=== PATIENT | female | born 1965 | race Caucasian/White ===

== ENCOUNTER 2021-10-07 16:29 | Inpatient (IN) | payer OTHER ==
[2021-10-07 16:41] VITALS: BMI 25.7
[2021-10-07] MEDS ORDERED: LACTATED RINGERS SOLUTION 1000 ML INFUS.BAG IV ONE (16:51)
[2021-10-07 17:38] LABS: VENOUS BASE EXCESS 5.8 mmol/L (-2-2); VENOUS PCO2 50.4 mmHg (38-52); VENOUS PH 7.416 (7.310-7.410)
[2021-10-07 17:45] LABS: BASO % 0.1 % (0-2.0); EOS % 0.3 % (0-4.5); HEMATOCRIT 40.6 % (32.4-45.2); HEMOGLOBIN 13.2 GM/dL (10.7-15.3); LYMPH % 4.2 % (8-40); MCH 28.2 pg (25.7-33.7); MCHC 32.5 g/dl (32.0-36.0); MEAN CELL VOLUME 86.7 fl (80-96); MEAN PLT VOLUME 8.8 fl (7.5-11.1); MONO % 4.1 % (3.8-10.2); NEUT % 91.3 % (42.8-82.8); PLATELET COUNT 329 10^3/uL (134-434); RBC 4.68 M/mm3 (3.60-5.2); RDW 14.1 % (11.6-15.6); WHITE BLOOD COUNT 8.5 K/mm3 (4.0-10.0)
[2021-10-07 17:49] LABS: INR 1.55 (0.83-1.09); PROTHROMBIN TIME (PATIENT) 17.4 SEC (9.7-13.0)
[2021-10-07 17:51] LABS: ACTIVATED PTT 28.5 SECONDS (25.2-36.5); CHLORIDE 99 mmol/L (98-107); SODIUM 139 mmol/L (136-145)
[2021-10-07 17:53] LABS: CALCIUM 8.4 mg/dL (8.5-10.1)
[2021-10-07 17:54] LABS: ANION GAP 8 MMOL/L (8-16); BLOOD UREA NITROGEN 17.7 mg/dL (7-18); CO2 32 mmol/L (21-32); GLUCOSE,RANDOM 368 mg/dL (74-106)
[2021-10-07 17:56] LABS: BILIRUBIN,DIRECT 0.2 mg/dL (0.0-0.2)
[2021-10-07 17:57] LABS: CREATININE 0.9 mg/dL (0.55-1.3); SGOT/AST 29 U/L (15-37); SGPT/ALT 38 U/L (13-61)
[2021-10-07 17:59] LABS: BILIRUBIN,TOTAL 0.5 mg/dL (0.2-1); LACTIC ACID 2.1 mmol/L (0.4-2.0); TOT PROT 8.2 g/dl (6.4-8.2)
[2021-10-07 18:00] LABS: ALK PHOS 86 U/L (45-117); LDH 495 U/L (84-246)
[2021-10-07 18:23] LABS: ANISOCYTOSIS 0; HELMET CELLS 0; HOWELL-JOLLY BODIES 0; MACROCYTOSIS 0; OVALOCYTE 0; PLATELET ESTIMATE NORMAL; ROULEAU 0; SICKELED CELLS 0; TARGET CELLS 0; TEAR DROP CELLS 0; TOXIC GRANULATION 0
[2021-10-07] MEDS ORDERED: DEXAMETHASONE SOD PHOSPHATE 10 MG/1 ML VIAL IVPUSH ONE (19:08)
[2021-10-07] MEDS ORDERED: INSULIN (NOVOLOG) ASPART 100 UNITS/ML 10ML VIAL SQ ONE (19:11)
[2021-10-07] MEDS ORDERED: DEXAMETHASONE SOD PHOSPHATE 10 MG/1 ML VIAL ONE (19:26)
[2021-10-07] MEDS ORDERED: AZITHROMYCIN 250 MG TABLET PO ONE (19:36)
[2021-10-07] MEDS ORDERED: CEFTRIAXONE 1 GM in DEXTROSE 5%-WATER - 100 ML IVPB ONE (19:36)
[2021-10-07] MEDS ORDERED: ENOXAPARIN NA (PORCINE) 40 MG/0.4 ML DISP.SYRIN SQ ONE (20:06)
[2021-10-07] MEDS ORDERED: AZITHROMYCIN 250 MG TABLET ONE (20:06)
[2021-10-07] MEDS ORDERED: CEFTRIAXONE 1 GM/50 ML BAG ONE (20:07)
[2021-10-07] MEDS: ENOXAPARIN NA (PORCINE) 40 MG/0.4 ML DISP.SYRIN SQ SCH (20:26)
[2021-10-08] MEDS ORDERED: amLODIPine BESYLATE 5 MG TABLET (FP) ONE ×2 (00:21→08:30)
[2021-10-08] MEDS: amLODIPine BESYLATE 5 MG TABLET (FP) PO SCH ×2 (00:24→09:05)
[2021-10-08] MEDS: INSULIN SLIDING SCALE (NOVOLOG) 1 VIAL SQ SCH ×4 (00:24→17:00)
[2021-10-08] MEDS: CEFTRIAXONE 2 GM in DEXTROSE 5%-WATER 2 GM/100 ML BAG IVPB SCH (01:30)
[2021-10-08 08:15] LABS: BASO % 0.3 % (0-2.0); EOS % 1.3 % (0-4.5); HEMATOCRIT 38.7 % (32.4-45.2); HEMOGLOBIN 12.6 GM/dL (10.7-15.3); LYMPH % 10.5 % (8-40); MCH 28.2 pg (25.7-33.7); MCHC 32.6 g/dl (32.0-36.0); MEAN CELL VOLUME 86.6 fl (80-96); MEAN PLT VOLUME 8.8 fl (7.5-11.1); MONO % 5.8 % (3.8-10.2); NEUT % 82.1 % (42.8-82.8); PLATELET COUNT 276 10^3/uL (134-434); RBC 4.46 M/mm3 (3.60-5.2); WHITE BLOOD COUNT 6.5 K/mm3 (4.0-10.0)
[2021-10-08] MEDS ORDERED: DEXAMETHASONE SOD PHOSPHATE 10 MG/1 ML VIAL ONE (08:30)
[2021-10-08] MEDS ORDERED: PANTOPRAZOLE SODIUM 40 MG VIAL ONE (08:31)
[2021-10-08] MEDS ORDERED: ENOXAPARIN NA (PORCINE) 40 MG/0.4 ML DISP.SYRIN SQ ONE (08:31)
[2021-10-08 08:35] LABS: MAGNESIUM 2.3 mg/dL (1.8-2.4)
[2021-10-08 08:39] LABS: PHOSPHOROUS 3.1 mg/dL (2.5-4.9)
[2021-10-08] MEDS: PANTOPRAZOLE SODIUM 40 MG VIAL IVPUSH SCH (09:05)
[2021-10-08] MEDS: DEXAMETHASONE SOD PHOSPHATE 10 MG/1 ML VIAL IVPUSH SCH (09:05)
[2021-10-08] MEDS: ENOXAPARIN NA (PORCINE) 40 MG/0.4 ML DISP.SYRIN SQ SCH (09:05)
[2021-10-08] MEDS ORDERED: CEFTRIAXONE 2 GM/100 ML BAG IVPB ONE (13:28)
[2021-10-08] MEDS ORDERED: AZITHROMYCIN IVPB 500 MG/250 ML BAG IVPB ONE (13:28)
[2021-10-08] MEDS: AZITHROMYCIN IVPB 500 MG/250 ML BAG IVPB SCH (14:00)
[2021-10-08] MEDS ORDERED: REMDESIVIR 200 MG in SODIUM CHLORIDE 250 ML IVPB ONE (17:15)
[2021-10-08] MEDS ORDERED: VANCOMYCIN 1 GM in D5W (PRE-DOCKED) 1,000 MG/250 ML IVPB ONE (18:20)
[2021-10-08] MEDS ORDERED: VANCOMYCIN 1 GRAM (PRE-DOCKED) 1,000 MG/250 ML BAG IVPB ONE ×2 (18:56→19:01)
[2021-10-09] MEDS: INSULIN (NOVOLOG) ASPART 100 UNITS/ML 10ML VIAL SQ SCH ×3 (00:24→22:33)
[2021-10-09] MEDS: INSULIN SLIDING SCALE (NOVOLOG) 1 VIAL SQ SCH ×4 (00:54→22:33)
[2021-10-09] MEDS: INSULIN (LEVEMIR) 100 UNITS/ML UNITS SQ SCH ×3 (00:54→22:34)
[2021-10-09] MEDS ORDERED: DEXAMETHASONE SOD PHOSPHATE 4 MG/1 ML VIAL ONE (07:45)
[2021-10-09] MEDS ORDERED: CEFTRIAXONE 2 GM/100 ML BAG IVPB ONE (07:46)
[2021-10-09] MEDS ORDERED: AZITHROMYCIN IVPB 500 MG/250 ML BAG IVPB ONE (07:47)
[2021-10-09] MEDS ORDERED: PANTOPRAZOLE SODIUM 40 MG VIAL ONE (07:47)
[2021-10-09] MEDS ORDERED: ENOXAPARIN NA (PORCINE) 40 MG/0.4 ML DISP.SYRIN SQ ONE (07:47)
[2021-10-09] MEDS: DEXAMETHASONE SOD PHOSPHATE 10 MG/1 ML VIAL IVPUSH SCH (09:16)
[2021-10-09] MEDS: ENOXAPARIN NA (PORCINE) 40 MG/0.4 ML DISP.SYRIN SQ SCH (09:16)
[2021-10-09] MEDS: amLODIPine BESYLATE 5 MG TABLET (FP) PO SCH (09:17)
[2021-10-09] MEDS: PANTOPRAZOLE SODIUM 40 MG VIAL IVPUSH SCH (09:17)
[2021-10-09] MEDS: CEFTRIAXONE 2 GM in DEXTROSE 5%-WATER 2 GM/100 ML BAG IVPB SCH (09:17)
[2021-10-09 10:17] LABS: ARTERIAL BLD GAS O2 SATURATION 76.4 % (95-98); ARTERIAL BLOOD GAS BASE EXCESS 1.7 mmol/L (-2-2); ARTERIAL BLOOD GAS PO2 44.2 mmHg (80-100); ARTERIAL BLOOD GAS pH 7.337 (7.350-7.450)
[2021-10-09] MEDS: AZITHROMYCIN IVPB 500 MG/250 ML BAG IVPB SCH (10:45)
[2021-10-09 12:22] LABS: ALBUMIN 1.7 g/dl (3.4-5.0); BLOOD UREA NITROGEN 19.5 mg/dL (7-18); MAGNESIUM 2.1 mg/dL (1.8-2.4)
[2021-10-09 12:25] LABS: CREATININE 0.7 mg/dL (0.55-1.3); PHOSPHOROUS 3.1 mg/dL (2.5-4.9)
[2021-10-09 12:26] LABS: TOT PROT 6.9 g/dl (6.4-8.2)
[2021-10-09 12:27] LABS: BILIRUBIN,TOTAL 0.2 mg/dL (0.2-1)
[2021-10-09] MEDS: REMDESIVIR 100 MG in SODIUM CHLORIDE 250 ML IVPB SCH (12:28)
[2021-10-09] MEDS ORDERED: VANCOMYCIN 1 GRAM (PRE-DOCKED) 1,000 MG/250 ML BAG IVPB ONE (13:39)
[2021-10-09] MEDS: VANCOMYCIN 1 GRAM (PRE-DOCKED) 1,000 MG/250 ML BAG IVPB SCH (13:44)
[2021-10-09 16:15] LABS: BASO % 0.9 % (0-2.0); EOS % 0.2 % (0-4.5); HEMATOCRIT 36.7 % (32.4-45.2); HEMOGLOBIN 12.1 GM/dL (10.7-15.3); LYMPH % 7.4 % (8-40); MCH 28.2 pg (25.7-33.7); MCHC 32.9 g/dl (32.0-36.0); MEAN CELL VOLUME 85.8 fl (80-96); MEAN PLT VOLUME 8.9 fl (7.5-11.1); MONO % 3.1 % (3.8-10.2); NEUT % 88.4 % (42.8-82.8); PLATELET COUNT 283 10^3/uL (134-434); RBC 4.28 M/mm3 (3.60-5.2); RDW 14.1 % (11.6-15.6); WHITE BLOOD COUNT 8.2 K/mm3 (4.0-10.0)
[2021-10-09 17:13] LABS: ERYTHROCYTE SEDIMENTATION RATE 82 mm/hr (0-30)
[2021-10-09] MEDS ORDERED: ATORVASTATIN CA 40 MG TABLET (FP) ONE (22:23)
[2021-10-10] MEDS: ATORVASTATIN CA 40 MG TABLET (FP) PO SCH ×2 (03:41→21:58)
[2021-10-10] MEDS ORDERED: VANCOMYCIN 1 GRAM (PRE-DOCKED) 1,000 MG/250 ML BAG IVPB SCH (03:45)
[2021-10-10 07:29] LABS: ALBUMIN 1.7 g/dl (3.4-5.0); BLOOD UREA NITROGEN 18.4 mg/dL (7-18)
[2021-10-10 07:30] LABS: CALCIUM 7.9 mg/dL (8.5-10.1)
[2021-10-10 07:31] LABS: CREATININE 0.6 mg/dL (0.55-1.3)
[2021-10-10 07:32] LABS: MAGNESIUM 2.2 mg/dL (1.8-2.4); PHOSPHOROUS 3.5 mg/dL (2.5-4.9)
[2021-10-10 07:33] LABS: BILIRUBIN,TOTAL 0.4 mg/dL (0.2-1); TOT PROT 6.3 g/dl (6.4-8.2)
[2021-10-10] MEDS: INSULIN SLIDING SCALE (NOVOLOG) 1 VIAL SQ SCH ×4 (07:41→21:59)
[2021-10-10] MEDS: INSULIN (LEVEMIR) 100 UNITS/ML UNITS SQ SCH ×2 (07:41→21:58)
[2021-10-10] MEDS: INSULIN (NOVOLOG) ASPART 100 UNITS/ML 10ML VIAL SQ SCH ×3 (07:42→18:10)
[2021-10-10] MEDS ORDERED: PT OWN MED DRAWER 7, Y5N ONE (08:49)
[2021-10-10] MEDS ORDERED: DEXTROSE 5%-WATER 100 ML IVPB ONE (08:50)
[2021-10-10 09:01] LABS: HEMATOCRIT 34.5 % (32.4-45.2); HEMOGLOBIN 11.3 GM/dL (10.7-15.3); MCH 28.1 pg (25.7-33.7); MCHC 32.6 g/dl (32.0-36.0); MEAN CELL VOLUME 86.1 fl (80-96); MEAN PLT VOLUME 9.2 fl (7.5-11.1); PLATELET COUNT 279 10^3/uL (134-434); RBC 4.01 M/mm3 (3.60-5.2); WHITE BLOOD COUNT 7.9 K/mm3 (4.0-10.0)
[2021-10-10] MEDS ORDERED: POTASSIUM CHLORIDE ORAL LIQUID 20 MEQ/15 ML PO ONE (09:45)
[2021-10-10] MEDS: CEFTRIAXONE 2 GM in DEXTROSE 5%-WATER 2 GM/100 ML BAG IVPB SCH (09:58)
[2021-10-10] MEDS: ENOXAPARIN NA (PORCINE) 40 MG/0.4 ML DISP.SYRIN SQ SCH (09:59)
[2021-10-10] MEDS: LISINOPRIL 20 MG TABLET PO SCH (09:59)
[2021-10-10] MEDS: valACYclovir HCL 500 MG TABLET (FP) PO SCH ×2 (10:00→21:58)
[2021-10-10] MEDS: amLODIPine BESYLATE 5 MG TABLET (FP) PO SCH (10:00)
[2021-10-10] MEDS: DEXAMETHASONE SOD PHOSPHATE 10 MG/1 ML VIAL IVPUSH SCH (10:00)
[2021-10-10] MEDS: HYDROCHLOROTHIAZIDE 12.5 MG CAPSULE (FP) PO SCH (10:00)
[2021-10-10] MEDS: PANTOPRAZOLE SODIUM 40 MG VIAL IVPUSH SCH (10:00)
[2021-10-10] MEDS: AZITHROMYCIN IVPB 500 MG/250 ML BAG IVPB SCH (10:01)
[2021-10-10] MEDS: REMDESIVIR 100 MG in SODIUM CHLORIDE 250 ML IVPB SCH (11:55)
[2021-10-11] MEDS: INSULIN SLIDING SCALE (NOVOLOG) 1 VIAL SQ SCH ×5 (06:36→21:28)
[2021-10-11] MEDS: INSULIN (LEVEMIR) 100 UNITS/ML UNITS SQ SCH ×2 (06:36→21:28)
[2021-10-11] MEDS: INSULIN (NOVOLOG) ASPART 100 UNITS/ML 10ML VIAL SQ SCH ×3 (06:36→18:09)
[2021-10-11 07:11] LABS: BASO % 0.2 % (0-2.0); EOS % 1.3 % (0-4.5); HEMATOCRIT 33.4 % (32.4-45.2); HEMOGLOBIN 11.2 GM/dL (10.7-15.3); LYMPH % 12.8 % (8-40); MCH 28.4 pg (25.7-33.7); MCHC 33.6 g/dl (32.0-36.0); MEAN CELL VOLUME 84.6 fl (80-96); MEAN PLT VOLUME 8.5 fl (7.5-11.1); MONO % 7.6 % (3.8-10.2); NEUT % 78.1 % (42.8-82.8); PLATELET COUNT 262 10^3/uL (134-434); RBC 3.95 M/mm3 (3.60-5.2); RDW 13.9 % (11.6-15.6); WHITE BLOOD COUNT 8.7 K/mm3 (4.0-10.0)
[2021-10-11 07:39] LABS: ALBUMIN 1.7 g/dl (3.4-5.0); BLOOD UREA NITROGEN 18.6 mg/dL (7-18); CALCIUM 8.2 mg/dL (8.5-10.1)
[2021-10-11 07:42] LABS: CREATININE 0.8 mg/dL (0.55-1.3); PHOSPHOROUS 2.8 mg/dL (2.5-4.9)
[2021-10-11 07:44] LABS: BILIRUBIN,TOTAL 0.6 mg/dL (0.2-1); TOT PROT 6.4 g/dl (6.4-8.2)
[2021-10-11] MEDS: VANCOMYCIN 1 GRAM (PRE-DOCKED) 1,000 MG/250 ML BAG IVPB SCH (08:03)
[2021-10-11] MEDS ORDERED: DEXTROSE 5%-WATER 100 ML IVPB ONE (10:19)
[2021-10-11] MEDS ORDERED: INSULIN (LEVEMIR) 100 UNITS/ML UNITS SQ ONE (10:45)
[2021-10-11] MEDS: ENOXAPARIN NA (PORCINE) 40 MG/0.4 ML DISP.SYRIN SQ SCH (11:10)
[2021-10-11] MEDS: PANTOPRAZOLE SODIUM 40 MG VIAL IVPUSH SCH (11:10)
[2021-10-11] MEDS: amLODIPine BESYLATE 5 MG TABLET (FP) PO SCH (11:10)
[2021-10-11] MEDS: REMDESIVIR 100 MG in SODIUM CHLORIDE 250 ML IVPB SCH (11:11)
[2021-10-11] MEDS: HYDROCHLOROTHIAZIDE 12.5 MG CAPSULE (FP) PO SCH (11:11)
[2021-10-11] MEDS: DEXAMETHASONE SOD PHOSPHATE 10 MG/1 ML VIAL IVPUSH SCH (11:11)
[2021-10-11] MEDS: LISINOPRIL 20 MG TABLET PO SCH (11:11)
[2021-10-11] MEDS: valACYclovir HCL 500 MG TABLET (FP) PO SCH ×2 (11:11→21:26)
[2021-10-11] MEDS: CEFTRIAXONE 2 GM in DEXTROSE 5%-WATER 2 GM/100 ML BAG IVPB SCH (11:17)
[2021-10-11] MEDS: AZITHROMYCIN IVPB 500 MG/250 ML BAG IVPB SCH (12:00)
[2021-10-11] MEDS: ATORVASTATIN CA 40 MG TABLET (FP) PO SCH (21:26)
[2021-10-12] MEDS: INSULIN SLIDING SCALE (NOVOLOG) 1 VIAL SQ SCH ×3 (06:34→21:58)
[2021-10-12] MEDS: INSULIN (NOVOLOG) ASPART 100 UNITS/ML 10ML VIAL SQ SCH ×2 (06:34→19:39)
[2021-10-12] MEDS: INSULIN (LEVEMIR) 100 UNITS/ML UNITS SQ SCH ×2 (06:34→21:58)
[2021-10-12 08:39] LABS: HEMATOCRIT 35.4 % (32.4-45.2); HEMOGLOBIN 11.3 GM/dL (10.7-15.3); MCH 27.3 pg (25.7-33.7); MCHC 31.9 g/dl (32.0-36.0); MEAN CELL VOLUME 85.5 fl (80-96); MEAN PLT VOLUME 9.8 fl (7.5-11.1); PLATELET COUNT 287 10^3/uL (134-434); RBC 4.13 M/mm3 (3.60-5.2); WHITE BLOOD COUNT 9.8 K/mm3 (4.0-10.0)
[2021-10-12 09:05] LABS: BLOOD UREA NITROGEN 18.6 mg/dL (7-18); CALCIUM 8.6 mg/dL (8.5-10.1); MAGNESIUM 2.2 mg/dL (1.8-2.4)
[2021-10-12 09:08] LABS: CREATININE 0.6 mg/dL (0.55-1.3); PHOSPHOROUS 3.5 mg/dL (2.5-4.9)
[2021-10-12] MEDS ORDERED: DEXTROSE 5%-WATER 100 ML IVPB ONE (09:51)
[2021-10-12] MEDS: CEFTRIAXONE 2 GM in DEXTROSE 5%-WATER 2 GM/100 ML BAG IVPB SCH (10:10)
[2021-10-12] MEDS: PANTOPRAZOLE SODIUM 40 MG VIAL IVPUSH SCH (10:10)
[2021-10-12] MEDS: ENOXAPARIN NA (PORCINE) 40 MG/0.4 ML DISP.SYRIN SQ SCH (10:10)
[2021-10-12] MEDS: amLODIPine BESYLATE 5 MG TABLET (FP) PO SCH (10:11)
[2021-10-12] MEDS: LISINOPRIL 20 MG TABLET PO SCH (10:11)
[2021-10-12] MEDS: HYDROCHLOROTHIAZIDE 12.5 MG CAPSULE (FP) PO SCH (10:11)
[2021-10-12] MEDS: DEXAMETHASONE SOD PHOSPHATE 10 MG/1 ML VIAL IVPUSH SCH (10:11)
[2021-10-12] MEDS: valACYclovir HCL 500 MG TABLET (FP) PO SCH ×2 (10:11→21:59)
[2021-10-12] MEDS: AZITHROMYCIN IVPB 500 MG/250 ML BAG IVPB SCH (10:16)
[2021-10-12] MEDS ORDERED: PT OWN MED DRAWER 7, Y5N ONE ×2 (11:50→21:39)
[2021-10-12] MEDS: DEXMEDETOMIDINE IN 0.9 % NACL 400 MCG/100 ML VIAL IVPB SCH (12:00)
[2021-10-12] MEDS ORDERED: ETOMIDATE 20 MG/10 ML AMPUL IVPUSH ONE ×2 (13:30→13:50)
[2021-10-12] MEDS ORDERED: MIDAZOLAM IN 0.9 % SOD.CHLORID 1 MG/1 ML PLAST..BAG ONE (13:36)
[2021-10-12] MEDS ORDERED: ROCURONIUM BROMIDE 50 MG/5 ML VIAL IV ONE (13:50)
[2021-10-12] MEDS ORDERED: VASOPRESSIN 20 UNITS/ML VIAL IV ONE (13:53)
[2021-10-12] MEDS: MIDAZOLAM IN 0.9 % SOD.CHLORID 100 MG/100 ML PLAST..BAG IVPB SCH ×2 (14:00→22:00)
[2021-10-12] MEDS ORDERED: MIDAZOLAM 100 MG in SODIUM CHLORIDE 100 ML IVPB SCH (14:00)
[2021-10-12] MEDS: REMDESIVIR 100 MG in SODIUM CHLORIDE 250 ML IVPB SCH (15:31)
[2021-10-12 17:11] LABS: ARTERIAL BLD GAS O2 SATURATION 89.5 % (95-98); ARTERIAL BLOOD GAS BASE EXCESS 4.4 mmol/L (-2-2); ARTERIAL BLOOD GAS PO2 57.7 mmHg (80-100); ARTERIAL BLOOD GAS pH 7.395 (7.350-7.450)
[2021-10-12 17:21] LABS: ALLENS TEST POSITIVE; VENT MODE A/C
[2021-10-12 17:22] LABS: VENT RATE 24
[2021-10-12] MEDS: SODIUM CHLORIDE 1,000 ML IV SCH (18:31)
[2021-10-12] MEDS ORDERED: DEXAMETHASONE SOD PHOSPHATE 10 MG/1 ML VIAL IVPUSH ONE (19:44)
[2021-10-12] MEDS ORDERED: ROCURONIUM IVPB SCH (19:45)
[2021-10-12] MEDS ORDERED: DEXTROSE IVPB SCH (19:45)
[2021-10-12] MEDS ORDERED: ROCURONIUM BROMIDE 500 MG/300 ML BAG IVPB SCH ×2 (20:30)
[2021-10-12] MEDS: PROPOFOL 1,000,000 MCG/100 ML VIAL IVPB SCH (21:56)
[2021-10-12] MEDS: ROCURONIUM BROMIDE 500 MG/300 ML BAG IVPB SCH (21:57)
[2021-10-12] MEDS: CHLORHEXIDINE GLUCONATE 4% CLEANSER FOR DECOLONIZATION TP SCH (21:57)
[2021-10-12] MEDS: MUPIROCIN 2% TOPICAL OINTMENT FOR DECOLONIZATION NS SCH (21:57)
[2021-10-12] MEDS: ATORVASTATIN CA 40 MG TABLET (FP) PO SCH (21:58)
[2021-10-13 06:31] LABS: ARTERIAL BLD GAS O2 SATURATION 92.4 % (95-98); ARTERIAL BLOOD GAS BASE EXCESS 1.8 mmol/L (-2-2); ARTERIAL BLOOD GAS PO2 66.3 mmHg (80-100); ARTERIAL BLOOD GAS pH 7.371 (7.350-7.450)
[2021-10-13 06:43] LABS: VENT MODE V-A/C; VENT RATE 24
[2021-10-13] MEDS: INSULIN (LEVEMIR) 100 UNITS/ML UNITS SQ SCH ×2 (06:52→21:39)
[2021-10-13] MEDS: INSULIN (NOVOLOG) ASPART 100 UNITS/ML 10ML VIAL SQ SCH ×3 (06:53→19:12)
[2021-10-13] MEDS: INSULIN SLIDING SCALE (NOVOLOG) 1 VIAL SQ SCH ×4 (06:53→21:38)
[2021-10-13 07:20] LABS: BASO % 0.1 % (0-2.0); HEMATOCRIT 31.8 % (32.4-45.2); HEMOGLOBIN 10.2 GM/dL (10.7-15.3); MCH 27.3 pg (25.7-33.7); MEAN CELL VOLUME 85.4 fl (80-96); MEAN PLT VOLUME 9.8 fl (7.5-11.1); MONO % 3.3 % (3.8-10.2); NEUT % 88.6 % (42.8-82.8); PLATELET COUNT 228 10^3/uL (134-434); RBC 3.72 M/mm3 (3.60-5.2); RDW 14.6 % (11.6-15.6); WHITE BLOOD COUNT 8.3 K/mm3 (4.0-10.0)
[2021-10-13 07:44] LABS: BLOOD UREA NITROGEN 25.2 mg/dL (7-18); CALCIUM 7.7 mg/dL (8.5-10.1); MAGNESIUM 2.1 mg/dL (1.8-2.4)
[2021-10-13 07:47] LABS: CREATININE 0.6 mg/dL (0.55-1.3)
[2021-10-13 07:48] LABS: PHOSPHOROUS 3.3 mg/dL (2.5-4.9); TOT PROT 5.9 g/dl (6.4-8.2)
[2021-10-13 07:50] LABS: BILIRUBIN,TOTAL 0.4 mg/dL (0.2-1)
[2021-10-13 07:56] LABS: ALBUMIN 1.8 g/dl (3.4-5.0)
[2021-10-13] MEDS ORDERED: VASOPRESSIN 40 UNITS/100 ML BAG IV SCH (08:30)
[2021-10-13] MEDS: MIDAZOLAM IN 0.9 % SOD.CHLORID 100 MG/100 ML PLAST..BAG IVPB SCH (08:30)
[2021-10-13] MEDS: VASOPRESSIN 40 UNITS/100 ML BAG IV SCH (08:32)
[2021-10-13] MEDS ORDERED: DEXAMETHASONE SOD PHOSPHATE 10 MG/1 ML VIAL IVPUSH SCH (10:00)
[2021-10-13] MEDS ORDERED: CEFTRIAXONE 2 GM in DEXTROSE 5%-WATER 2 GM/100 ML BAG IVPB SCH (10:00)
[2021-10-13] MEDS ORDERED: AZITHROMYCIN IVPB 500 MG/250 ML BAG IVPB SCH (10:00)
[2021-10-13] MEDS ORDERED: PT OWN MED DRAWER 7, Y5N ONE ×2 (10:46→21:23)
[2021-10-13] MEDS: LISINOPRIL 20 MG TABLET PO SCH (11:15)
[2021-10-13] MEDS: amLODIPine BESYLATE 5 MG TABLET (FP) PO SCH (11:16)
[2021-10-13] MEDS: HYDROCHLOROTHIAZIDE 12.5 MG CAPSULE (FP) PO SCH (11:24)
[2021-10-13] MEDS: MUPIROCIN 2% TOPICAL OINTMENT FOR DECOLONIZATION NS SCH ×2 (11:46→21:39)
[2021-10-13] MEDS: ENOXAPARIN NA (PORCINE) 40 MG/0.4 ML DISP.SYRIN SQ SCH (11:46)
[2021-10-13] MEDS: DEXAMETHASONE SOD PHOSPHATE 10 MG/1 ML VIAL IVPUSH SCH (11:46)
[2021-10-13] MEDS: valACYclovir HCL 500 MG TABLET (FP) PO SCH ×2 (11:47→21:39)
[2021-10-13] MEDS: PANTOPRAZOLE SODIUM 40 MG VIAL IVPUSH SCH (11:47)
[2021-10-13] MEDS: ROCURONIUM BROMIDE 500 MG/300 ML BAG IVPB SCH (13:00)
[2021-10-13] MEDS: PROPOFOL 1,000,000 MCG/100 ML VIAL IVPB SCH ×2 (15:31→21:39)
[2021-10-13] MEDS ORDERED: MIDAZOLAM IN 0.9 % SOD.CHLORID 0 MG/0 ML PLAST..BAG ONE (18:02)
[2021-10-13] MEDS: REMDESIVIR 100 MG in SODIUM CHLORIDE 250 ML IVPB SCH (18:35)
[2021-10-13] MEDS: SODIUM CHLORIDE 1,000 ML IV SCH (18:36)
[2021-10-13] MEDS: DEXMEDETOMIDINE IN 0.9 % NACL 400 MCG/100 ML VIAL IVPB SCH (18:51)
[2021-10-13] MEDS: ATORVASTATIN CA 40 MG TABLET (FP) PO SCH (21:39)
[2021-10-13] MEDS: CHLORHEXIDINE GLUCONATE 4% CLEANSER FOR DECOLONIZATION TP SCH (21:39)
[2021-10-14] MEDS: DEXMEDETOMIDINE IN 0.9 % NACL 400 MCG/100 ML VIAL IVPB SCH ×3 (03:00→12:00)
[2021-10-14] MEDS ORDERED: VASOPRESSIN 20 UNITS/ML VIAL IV ONE (04:05)
[2021-10-14] MEDS: VASOPRESSIN 40 UNITS/100 ML BAG IV SCH ×3 (04:14→14:31)
[2021-10-14] MEDS: ROCURONIUM BROMIDE 500 MG/300 ML BAG IVPB SCH ×3 (04:15→17:30)
[2021-10-14] MEDS: INSULIN (LEVEMIR) 100 UNITS/ML UNITS SQ SCH ×2 (06:01→22:52)
[2021-10-14] MEDS: INSULIN (NOVOLOG) ASPART 100 UNITS/ML 10ML VIAL SQ SCH ×3 (06:02→17:10)
[2021-10-14] MEDS: INSULIN SLIDING SCALE (NOVOLOG) 1 VIAL SQ SCH ×4 (06:02→22:52)
[2021-10-14] MEDS: SODIUM CHLORIDE 1,000 ML IV SCH ×3 (06:54→18:30)
[2021-10-14 06:58] LABS: HEMATOCRIT 34.1 % (32.4-45.2); HEMOGLOBIN 10.9 GM/dL (10.7-15.3); MCH 27.2 pg (25.7-33.7); MCHC 31.8 g/dl (32.0-36.0); MEAN CELL VOLUME 85.3 fl (80-96); MEAN PLT VOLUME 9.5 fl (7.5-11.1); PLATELET COUNT 303 10^3/uL (134-434); RBC 3.99 M/mm3 (3.60-5.2); RDW 14.6 % (11.6-15.6); WHITE BLOOD COUNT 16.3 K/mm3 (4.0-10.0)
[2021-10-14 07:12] LABS: CALCIUM 7.8 mg/dL (8.5-10.1)
[2021-10-14 07:13] LABS: BLOOD UREA NITROGEN 23.1 mg/dL (7-18); MAGNESIUM 2.2 mg/dL (1.8-2.4)
[2021-10-14 07:16] LABS: CREATININE 0.6 mg/dL (0.55-1.3); PHOSPHOROUS 2.6 mg/dL (2.5-4.9)
[2021-10-14 07:18] LABS: BILIRUBIN,TOTAL 0.4 mg/dL (0.2-1); TOT PROT 6.1 g/dl (6.4-8.2)
[2021-10-14 07:44] LABS: ALBUMIN 1.8 g/dl (3.4-5.0)
[2021-10-14 09:12] LABS: ANISOCYTOSIS 2+; MACROCYTOSIS 0; PLATELET ESTIMATE NORMAL
[2021-10-14] MEDS: HYDROCHLOROTHIAZIDE 12.5 MG CAPSULE (FP) PO SCH (09:42)
[2021-10-14] MEDS ORDERED: PT OWN MED DRAWER 7, Y5N ONE ×2 (09:50→14:27)
[2021-10-14] MEDS: PANTOPRAZOLE SODIUM 40 MG VIAL IVPUSH SCH (09:51)
[2021-10-14] MEDS: valACYclovir HCL 500 MG TABLET (FP) PO SCH ×2 (09:51→21:44)
[2021-10-14] MEDS: ENOXAPARIN NA (PORCINE) 40 MG/0.4 ML DISP.SYRIN SQ SCH (09:51)
[2021-10-14] MEDS: PROPOFOL 1,000,000 MCG/100 ML VIAL IVPB SCH ×2 (09:52→18:15)
[2021-10-14] MEDS: DEXAMETHASONE SOD PHOSPHATE 10 MG/1 ML VIAL IVPUSH SCH (09:54)
[2021-10-14] MEDS: amLODIPine BESYLATE 5 MG TABLET (FP) PO SCH (09:55)
[2021-10-14] MEDS: LISINOPRIL 20 MG TABLET PO SCH (09:55)
[2021-10-14] MEDS: MUPIROCIN 2% TOPICAL OINTMENT FOR DECOLONIZATION NS SCH ×2 (10:11→21:44)
[2021-10-14] MEDS ORDERED: REMDESIVIR 100 MG in SODIUM CHLORIDE 250 ML IVPB SCH (12:01)
[2021-10-14] MEDS: REMDESIVIR 100 MG in SODIUM CHLORIDE 250 ML IVPB SCH (14:19)
[2021-10-14] MEDS: FENTANYL NS IVPB 500 MCG/100 ML BAG IVPB SCH (20:23)
[2021-10-14] MEDS: CHLORHEXIDINE GLUCONATE 4% CLEANSER FOR DECOLONIZATION TP SCH (21:44)
[2021-10-14] MEDS: ATORVASTATIN CA 40 MG TABLET (FP) PO SCH (21:44)
[2021-10-15] MEDS: INSULIN (LEVEMIR) 100 UNITS/ML UNITS SQ SCH ×2 (06:30→23:51)
[2021-10-15] MEDS: INSULIN (NOVOLOG) ASPART 100 UNITS/ML 10ML VIAL SQ SCH ×3 (06:30→18:40)
[2021-10-15] MEDS: INSULIN SLIDING SCALE (NOVOLOG) 1 VIAL SQ SCH ×4 (06:30→23:51)
[2021-10-15 06:55] LABS: BLOOD UREA NITROGEN 28.2 mg/dL (7-18); CALCIUM 7.4 mg/dL (8.5-10.1); MAGNESIUM 2.1 mg/dL (1.8-2.4)
[2021-10-15 06:58] LABS: CREATININE 0.6 mg/dL (0.55-1.3); PHOSPHOROUS 2.6 mg/dL (2.5-4.9)
[2021-10-15 07:12] LABS: HEMATOCRIT 32.2 % (32.4-45.2); HEMOGLOBIN 10.3 GM/dL (10.7-15.3); MCH 27.3 pg (25.7-33.7); MCHC 31.9 g/dl (32.0-36.0); MEAN CELL VOLUME 85.6 fl (80-96); PLATELET COUNT 210 10^3/uL (134-434); RBC 3.76 M/mm3 (3.60-5.2); RDW 14.8 % (11.6-15.6); WHITE BLOOD COUNT 10.9 K/mm3 (4.0-10.0)
[2021-10-15 07:31] LABS: ARTERIAL BLOOD GAS BASE EXCESS 1.8 mmol/L (-2-2); ARTERIAL BLOOD GAS PO2 62.6 mmHg (80-100); ARTERIAL BLOOD GAS pH 7.328 (7.350-7.450)
[2021-10-15 07:58] LABS: ALLENS TEST POSITIVE; VENT MODE A/C; VENT RATE 24
[2021-10-15] MEDS: VASOPRESSIN 40 UNITS/100 ML BAG IV SCH (08:30)
[2021-10-15] MEDS: ROCURONIUM BROMIDE 500 MG/300 ML BAG IVPB SCH ×2 (08:30→18:30)
[2021-10-15] MEDS: PANTOPRAZOLE SODIUM 40 MG VIAL IVPUSH SCH (10:09)
[2021-10-15] MEDS: DEXAMETHASONE SOD PHOSPHATE 10 MG/1 ML VIAL IVPUSH SCH (10:09)
[2021-10-15] MEDS: HYDROCHLOROTHIAZIDE 12.5 MG CAPSULE (FP) PO SCH (10:12)
[2021-10-15] MEDS: LISINOPRIL 20 MG TABLET PO SCH (10:13)
[2021-10-15] MEDS: amLODIPine BESYLATE 5 MG TABLET (FP) PO SCH (10:13)
[2021-10-15] MEDS ORDERED: PT OWN MED DRAWER 7, Y5N ONE ×2 (10:19→22:51)
[2021-10-15] MEDS: SODIUM CHLORIDE 1,000 ML IV SCH (10:20)
[2021-10-15] MEDS: valACYclovir HCL 500 MG TABLET (FP) PO SCH ×2 (10:32→22:53)
[2021-10-15] MEDS: MUPIROCIN 2% TOPICAL OINTMENT FOR DECOLONIZATION NS SCH ×2 (11:11→22:52)
[2021-10-15] MEDS: ENOXAPARIN NA (PORCINE) 40 MG/0.4 ML DISP.SYRIN SQ SCH (11:35)
[2021-10-15] MEDS: DEXMEDETOMIDINE IN 0.9 % NACL 400 MCG/100 ML VIAL IVPB SCH (12:00)
[2021-10-15] MEDS: PROPOFOL 1,000,000 MCG/100 ML VIAL IVPB SCH ×2 (12:38→18:30)
[2021-10-15] MEDS: FENTANYL NS IVPB 500 MCG/100 ML BAG IVPB SCH ×2 (13:35→18:30)
[2021-10-15] MEDS ORDERED: FUROSEMIDE 40 MG/4 ML INJECTABLE VIAL IVPUSH ONE (13:45)
[2021-10-15] MEDS: REMDESIVIR 100 MG in SODIUM CHLORIDE 250 ML IVPB SCH (14:25)
[2021-10-15] MEDS: AMINO ACIDS 4.25%/D5W 1,000 ML IV SCH (15:11)
[2021-10-15] MEDS ORDERED: NOREPINEPHRINE BITARTRATE 4 MG/4 ML ML IV ONE ×2 (16:41→16:42)
[2021-10-15] MEDS ORDERED: ROCURONIUM BROMIDE 50 MG/5 ML VIAL IV ONE (17:32)
[2021-10-15] MEDS: NOREPINEPHRINE BITARTRATE 16,000 MCG in SODIUM CHLORIDE 484 ML IV SCH (17:45)
[2021-10-15] MEDS ORDERED: EPINEPHrine 1:1,000 1,000 MCG in DEXTROSE 5%-WATER - 249 ML IVPB SCH (18:15)
[2021-10-15] MEDS: FLUDROCORTISONE ACETATE 0.1 MG TABLET (FP) PO SCH (22:52)
[2021-10-15] MEDS: ATORVASTATIN CA 40 MG TABLET (FP) PO SCH (22:53)
[2021-10-15] MEDS: CHLORHEXIDINE GLUCONATE 4% CLEANSER FOR DECOLONIZATION TP SCH (22:53)
[2021-10-15] MEDS ORDERED: INSULIN REGULAR HUMAN 100 UNITS/ML *VIAL* (FOR IVP) IVPUSH ONE (23:05)
[2021-10-15] MEDS ORDERED: INSULIN REGULAR 100 UNITS in SODIUM CHLORIDE 99 ML IVPB SCH ×2 (23:15→23:18)
[2021-10-16] MEDS ORDERED: PT OWN MED DRAWER 7, Y5N ONE ×2 (01:39→08:18)
[2021-10-16] MEDS: EPINEPHRINE IV SCH ×2 (01:54→18:29)
[2021-10-16] MEDS: SODIUM CHLORIDE IV SCH ×2 (01:54→18:29)
[2021-10-16] MEDS: ROCURONIUM BROMIDE 500 MG/300 ML BAG IVPB SCH ×3 (02:22→14:30)
[2021-10-16 03:17] LABS: BLOOD UREA NITROGEN 33.5 mg/dL (7-18); GLUCOSE,RANDOM 588 mg/dL (74-106)
[2021-10-16 03:18] LABS: CALCIUM 7.2 mg/dL (8.5-10.1); CHLORIDE 96 mmol/L (98-107); CO2 21 mmol/L (21-32); CREATININE 1.5 mg/dL (0.55-1.3); SODIUM 132 mmol/L (136-145)
[2021-10-16] MEDS ORDERED: INSULIN REGULAR HUMAN 100 UNITS/ML *VIAL IVPUSH ONE (03:45)
[2021-10-16] MEDS ORDERED: INSULIN REGULAR 100 UNITS in SODIUM CHLORIDE 99 ML IVPB SCH (05:45)
[2021-10-16] MEDS ORDERED: EPINEPHrine/PF 1 MG/1 ML (1:1,000) AMPULE ONE (07:17)
[2021-10-16] MEDS ORDERED: VASOPRESSIN 20 UNITS/ML VIAL IV ONE (07:17)
[2021-10-16] MEDS: FENTANYL NS IVPB 500 MCG/100 ML BAG IVPB SCH ×4 (08:36→20:21)
[2021-10-16] MEDS: PROPOFOL 1,000,000 MCG/100 ML VIAL IVPB SCH ×3 (08:37→18:25)
[2021-10-16] MEDS: KCL 10 MEQ IVPB 10 MEQ/100 ML INFUS.BAG IVPB SCH ×3 (09:00→12:13)
[2021-10-16] MEDS: ENOXAPARIN NA (PORCINE) 40 MG/0.4 ML DISP.SYRIN SQ SCH (10:28)
[2021-10-16] MEDS: PANTOPRAZOLE SODIUM 40 MG VIAL IVPUSH SCH (10:28)
[2021-10-16] MEDS: DEXAMETHASONE SOD PHOSPHATE 10 MG/1 ML VIAL IVPUSH SCH (10:28)
[2021-10-16] MEDS: FLUDROCORTISONE ACETATE 0.1 MG TABLET (FP) PO SCH (10:28)
[2021-10-16] MEDS: valACYclovir HCL 500 MG TABLET (FP) PO SCH (10:29)
[2021-10-16] MEDS: VASOPRESSIN 40 UNITS/100 ML BAG IV SCH ×2 (10:30→14:18)
[2021-10-16] MEDS: MUPIROCIN 2% TOPICAL OINTMENT FOR DECOLONIZATION NS SCH ×2 (10:31→21:49)
[2021-10-16] MEDS: REMDESIVIR 100 MG in SODIUM CHLORIDE 250 ML IVPB SCH (14:10)
[2021-10-16] MEDS: DEXMEDETOMIDINE IN 0.9 % NACL 400 MCG/100 ML VIAL IVPB SCH (14:15)
[2021-10-16] MEDS: AMINO ACIDS 4.25%/D5W 1,000 ML IV SCH (14:15)
[2021-10-16] MEDS: NOREPINEPHRINE BITARTRATE 16,000 MCG in SODIUM CHLORIDE 484 ML IV SCH ×2 (14:16→18:25)
[2021-10-16] MEDS: CHLORHEXIDINE GLUCONATE 4% CLEANSER FOR DECOLONIZATION TP SCH (21:49)
[2021-10-16] MEDS: ATORVASTATIN CA 40 MG TABLET (FP) PO SCH (21:49)
[2021-10-17] MEDS: SODIUM CHLORIDE IV SCH ×2 (01:36→17:20)
[2021-10-17] MEDS: EPINEPHRINE IV SCH ×2 (01:36→17:20)
[2021-10-17 05:58] LABS: ARTERIAL BLD GAS O2 SATURATION 26.3 % (95-98); ARTERIAL BLOOD GAS BASE EXCESS -21.5 mmol/L (-2-2)
[2021-10-17 06:20] LABS: ARTERIAL BLOOD GAS PO2 29.4 mmHg (80-100)
[2021-10-17 06:21] LABS: ALLENS TEST POSITIVE; VENT MODE V-A/C; VENT RATE 32
[2021-10-17] MEDS: FENTANYL NS IVPB 500 MCG/100 ML BAG IVPB SCH ×3 (07:00→17:30)
[2021-10-17 07:44] LABS: HEMATOCRIT 38.8 % (32.4-45.2); HEMOGLOBIN 11.8 GM/dL (10.7-15.3); MCH 27.9 pg (25.7-33.7); MCHC 30.4 g/dl (32.0-36.0); MEAN CELL VOLUME 91.9 fl (80-96); MEAN PLT VOLUME 9.5 fl (7.5-11.1); PLATELET COUNT 273 10^3/uL (134-434); RBC 4.23 M/mm3 (3.60-5.2); RDW 15.7 % (11.6-15.6)
[2021-10-17 08:39] LABS: CHLORIDE 109 mmol/L (98-107); SODIUM 136 mmol/L (136-145)
[2021-10-17 08:41] LABS: ANION GAP 12 MMOL/L (8-16); BLOOD UREA NITROGEN 38.8 mg/dL (7-18); CO2 15 mmol/L (21-32); GLUCOSE,RANDOM 209 mg/dL (74-106); MAGNESIUM 1.9 mg/dL (1.8-2.4)
[2021-10-17 08:44] LABS: CREATININE 2.3 mg/dL (0.55-1.3); PHOSPHOROUS 6.1 mg/dL (2.5-4.9)
[2021-10-17 08:46] LABS: BILIRUBIN,TOTAL 0.7 mg/dL (0.2-1)
[2021-10-17] MEDS: PROPOFOL 1,000,000 MCG/100 ML VIAL IVPB SCH ×3 (08:58→20:13)
[2021-10-17] MEDS: DEXAMETHASONE SOD PHOSPHATE 10 MG/1 ML VIAL IVPUSH SCH (09:02)
[2021-10-17] MEDS: FLUDROCORTISONE ACETATE 0.1 MG TABLET (FP) PO SCH (09:03)
[2021-10-17] MEDS: MUPIROCIN 2% TOPICAL OINTMENT FOR DECOLONIZATION NS SCH (09:03)
[2021-10-17] MEDS: PANTOPRAZOLE SODIUM 40 MG VIAL IVPUSH SCH (09:03)
[2021-10-17] MEDS: ENOXAPARIN NA (PORCINE) 40 MG/0.4 ML DISP.SYRIN SQ SCH (09:04)
[2021-10-17 09:13] LABS: ANISOCYTOSIS 3+; MACROCYTOSIS 0; PLATELET ESTIMATE NORMAL
[2021-10-17] MEDS: NOREPINEPHRINE BITARTRATE 16,000 MCG in SODIUM CHLORIDE 484 ML IV SCH ×3 (09:13→20:12)
[2021-10-17 09:37] LABS: ALBUMIN 0.8 g/dl (3.4-5.0); ALK PHOS 281 U/L (45-117); CALCIUM 5.4 mg/dL (8.5-10.1); SGOT/AST 5642 U/L (15-37); SGPT/ALT 1931 U/L (13-61); TOT PROT 3.4 g/dl (6.4-8.2)
[2021-10-17] MEDS: VASOPRESSIN 40 UNITS/100 ML BAG IV SCH ×2 (13:30→18:32)
[2021-10-17] MEDS: REMDESIVIR 100 MG in SODIUM CHLORIDE 250 ML IVPB SCH (13:59)
[2021-10-17] MEDS ORDERED: PT OWN MED DRAWER 7, Y5N ONE ×2 (14:40→18:21)
[2021-10-17] MEDS: ROCURONIUM BROMIDE 500 MG/300 ML BAG IVPB SCH ×2 (18:32→22:33)
[2021-10-17 22:31] VITALS: TEMP 96.8
[2021-10-17] MEDS: CHLORHEXIDINE GLUCONATE 4% CLEANSER FOR DECOLONIZATION TP SCH (22:33)
[2021-10-17] MEDS: ATORVASTATIN CA 40 MG TABLET (FP) PO SCH (22:33)
[2021-10-18 00:52] VITALS: BP 70/54; PULSE 60
== END 2021-10-18 03:00 | disposition expired | DRG 720 ==
LOC: EDBD 16:29 → JER 16:29 → JERBED 17:42 → J4W 10-10 01:19 → JICU 10-12 11:42
PROVIDERS: ADMIT Hospitalist; ATTEND Internal Medicine
PROC: 5A1955Z Respiratory Ventilation, Greater than 96 Consecutive Hours (ICD-10-PCS; principal; 2021-10-12)
PROC: 0BH17EZ Insertion of Endotracheal Airway into Trachea, Via Natural or Artificial Opening (ICD-10-PCS; 2021-10-12)
PROC: 0W9930Z Drainage of Right Pleural Cavity with Drainage Device, Percutaneous Approach (ICD-10-PCS; 2021-10-13)
PROC: XW033E5 Introduction of Remdesivir Anti-infective into Peripheral Vein, Percutaneous Approach, New Technology Group 5 (ICD-10-PCS; 2021-10-13)
PROC: 05HM33Z Insertion of Infusion Device into Right Internal Jugular Vein, Percutaneous Approach (ICD-10-PCS; 2021-10-15)
PROC: B543ZZA Ultrasonography of Right Jugular Veins, Guidance (ICD-10-PCS; 2021-10-15)
PROC: 5A12012 Performance of Cardiac Output, Single, Manual (ICD-10-PCS; 2021-10-18)
DX: A41.89 Other specified sepsis (principal); U07.1 COVID-19; J93.9 Pneumothorax, unspecified; I10 Essential (primary) hypertension; I95.9 Hypotension, unspecified; J12.82 Pneumonia due to coronavirus disease 2019; N17.9 Acute kidney failure, unspecified; J80 Acute respiratory distress syndrome; R65.21 Severe sepsis with septic shock; F84.0 Autistic disorder; D72.829 Elevated white blood cell count, unspecified; E87.2 Acidosis; E78.5 Hyperlipidemia, unspecified; E11.65 Type 2 diabetes mellitus with hyperglycemia
CPT/HCPCS: 36415; 36600; 71045-TC-FY; 80048; 80053; 80076; 82248; 82550; 82728; 82803; 82962; 83036; 83605; 83615; 83735; 84100; 84484; 85025; 85027; 85379; 85610; 85651; 85730; 86140; 86480; 86694; 86705; 86707; 86769; 87040; 87070; 87077; 87086; 87205; 87340; 87350; 87517; 87804; 87807; 87899; 93005; 93010; 93970-TC; 94002; 94660; 99285-25; C9399; C9803-CS; J1100; J3490; U0003; U0005